=== PATIENT | male | born 1985 | race African-American/Black ===

== ENCOUNTER 2025-02-26 14:09 | Outpatient (AMB) | payer OTHER, SELFPAY ==
--- NOTE | 2025-02-26 14:11 | MHC.PC.OV ---
Vital Signs 02/26/25 14:14 Height 5 ft 11 in Weight 335 lb 4 oz BMI 46.8 BP 132/70 Blood Pressure Location Lt brachial Position Sitting Respiration 16 Pulse 93 Pulse Source Pulse Oximeter Temp 97.1 F Temp Source Temporal Artery Scan Pulse Oximetry (%) 97 Oxygen Delivery Method Room Air Intake Visit Reasons: New Patient, reestablish care and physical Site Coordinator Required: No Accompanied by: Self / Same As Patient Allergies No Known Allergies Allergy (Verified 02/26/25 14:15) Medication List - Last Reconciled 02/26/25 by Renita Graham MD No Known Home Meds Tobacco use date assessed: 02/26/25 Dental Screening Dental Screen Date: 02/26/25 Did you have a dental visit in the last 12 months?: Yes Did you have a dental problem in the last 6 months where you did not have access to dental care?: No Was dental information given to patient?: Patient has dentist HPI HPI Comments History of Present Illness Details The patient is a 39 year old male presenting for an annual physical examination. Attention-Deficit Hyperactivity Disorder: The patient reports variable focus and attention, describing it as either really bad or really good. At work, the patient uses a filing system to stay organized, but feels a greater need for focus and task adherence at home. The symptoms do not currently interfere with work functionality. The patient is not currently interested in pharmacotherapy but is open to a future psychiatry consultation if symptoms worsen at home. Melanonychia: The patient noted a dark line on the left fingernail that has been present for a couple of months. The patient does not recall any trauma to the nail. Urinary Hesitancy: The patient has a past history of experiencing urinary hesitancy and a sensation of incomplete bladder emptying. These symptoms have not occurred recently. Cervical Lymphadenopathy and Thyroid Fullness: On current examination, there is a small lymph node in the right cervical area and fullness in the thyroid region. 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 - Family Status: The patient has a baby. - Mental Health Screening: ARA-7 score was 0, and PHQ-9 score was 1. Diagnostic Results: - Screening Tests: ARA-7 (anxiety) score of 0; PHQ-9 (depression) score of 1. [facility] Medical History (Updated 02/26/25 @ 14:39 by Renita Graham MD) Thyromegaly Routine medical exam ADHD Surgical History (Updated 02/26/25 @ 12:58 by Renita Graham MD) History of hernia surgery Family History (Updated 02/26/25 @ 12:57 by Renita Graham MD) Father Prostate cancer Other Diabetes mellitus Primary hypertension Social History Housing: Apartment Patient Tobacco Use Status: Current everyday Tobacco user Tobacco use type: Cigarette Cigarettes Per Day: 3 Years Smoked: on and off for 20 years e-Cigarette/Vaping Use: Former Use service: No Current occupational status: employed Current occupation: human services Questionnaire PHQ-9 Over the last 2 weeks, how often have you been bothered by any of the following problems? 1. Little interest or pleasure in doing things: not at all 2. Feeling down, depressed, or hopeless: not at all 3. Trouble falling or staying asleep, or sleeping too much: not at all 4. Feeling tired or having little energy: several days 5. Poor appetite or overeating: not at all 6. Feeling bad about yourself - or that you are a failure or have let yourself or your family down: not at all 7. Trouble concentrating on things, such as reading the newspaper or watching television: not at all 8. Moving or speaking so slowly that other people could have noticed. Or the opposite - being so fidgety or restless that you have been moving around a lot more than usual: not at all 9. Thoughts that you would be better off or of hurting yourself in some way: not at all Total score: 1 Depression Screening Interpretation: Negative Depression Screening Done: Yes 70890 - PHQ-9 Billing: Yes Source: Developed by Drs. Ridge Brown, Caren Avery, Stevie Abraham and colleagues, with an educational sujey from [employer]. Thrive Questionnaire Date Thrive assessed: 02/26/25 I am a: Patient What is your living situation today?: I have a steady place to live Within the past 12 months, did the food you bought not last and you didn't have the money to get more?: Never true Within the past 12 months, did you worry whether your food would run out before you got money to buy more?: Never true Do you have trouble paying for medicines?: No Do you have trouble getting transportation to medical appointments?: No Do you have trouble paying your heating and electricity bill?: No Do you have trouble taking care of your child, family member or friend?: No Do you have trouble with day-to-day activities such as bathing, preparing meals, shopping, managing finances, etc.?: No Are you currently unemployed and looking for a job?: No Are you interested in more education?: Yes Please select the resources that you would like help with: None Currently or been in a relationship where the following occur: No concerns reported THRIVE Score: 0 AUDIT C Alcohol Use Questionnaire (AUDIT-C) 1. How often do you have a drink containing alcohol?: Monthly or less 2. How many drinks containing alcohol do you have on a typical day when you are drinking?: 3 or 4 3. How often do you have six or more drinks on one occasion?: Never Total Score: 2 ARA-7 AMB Questionnaire ARA-7 Date ARA - 7 assessed: 02/26/25 Feeling nervous, anxious, or on edge: 0 = Not at all Not being able to stop or control worryin = Not at all Worrying too much about different things: 0 = Not at all Trouble relaxin = Not at all Being so restless that it is hard to sit still: 0 = Not at all Becoming easily annoyed or irritable: 0 = Not at all Feeling afraid as if something awful might happen: 0 = Not at all Total ARA-7 score (0-4 normal; 5-9 mild; 10-14 moderate; 15-21 severe): 0 Source: Developed by Drs. Ridge Brown, Caren Avery, Stevie Abraham and colleagues, with an educational sujey from [employer]. Review of Systems Narrative Review of Systems - Psychiatric: Denies symptoms of anxiety or depression based on screening scores. Reports variable focus and attention, which is more pronounced at home but does not affect work performance. - Dermatologic: Reports a dark line on the left thumb fingernail for a couple of months. Denies trauma. - Genitourinary: per hpi Physical exam (Primary Care) Vital Signs: Last Vital Signs Temp 97.1 F 02/26/25 14:14 Pulse 93 02/26/25 14:14 Resp 16 02/26/25 14:14 BP 132/70 02/26/25 14:14 Pulse Ox 97 02/26/25 14:14 Oxygen Delivery Method Room Air 02/26/25 14:14 BMI result Body Mass Index 46.8 Tobacco/Smoking Status: Tobacco use Status Tobacco use date assessed 02/26/25 02/26/25 14:18 Patient Tobacco Use Status Current everyday Tobacco 02/26/25 14:18 Tobacco use type Cigarette 02/26/25 14:18 e-Cigarette/Vaping Use Former Use 02/26/25 14:18 PHQ-9: PHQ-9 Score PHQ-9: Total score 1 02/26/25 16:06 Depression Screening Interpretation: Negative Thrive Assessment: Date of Thrive Assessment Date Thrive assessed 02/26/25 02/26/25 14:18 Currently or been in a relationship where the following occur: No concerns reported Narrative Physical Exam - Gen: NAD - HEENT: External ear canals are clear bilaterally. Oropharynx is clear. Neck exam reveals fullness in the thyroid region, +thyromegaly and a small, non-tender lymph node in the right cervical area. - Cardiovascular: Regular rhythm. Normal S1 and S2. Soft murmur was auscultated. Carotids are clear to auscultation. - Pulmonary: Lungs are clear to auscultation bilaterally. - Abdomen: Soft, non-tender, and non-distended with normal bowel sounds. - Extremities: No edema in bilateral lower extremities. Coding Level of Care Code Est Pt Prev Care [id number](53274) Complex visit Add On G2211 Diagnoses Thyromegaly E01.0 Additional Codes PHQ-9 - 92982 - PHQ-9 Billing: Yes ([id number]) Assessment & Plan Assessment & Plan (1) Thyromegaly: Code(s): E01.0 - Iodine-deficiency related diffuse (endemic) goiter Category: Medical Plan Assessment and Plan 1. Annual Physical Examination The patient is a 39-year-old individual presenting for a routine check-up. Plan includes ordering fasting labs (CBC, lipid panel, CMP) to screen for anemia, cholesterol levels, and kidney and liver function. 2. Attention-Deficit Hyperactivity Disorder The patient manages symptoms with organizational strategies and does not wish to start medication at this time. Symptoms are more pronounced at home but do not impact work function. Plan is to continue with current strategies and offer a psychiatry referral if the patient's symptoms worsen or the patient requests it. 3. Melanonychia The patient has a dark line on the left fingernail for two months with no history of trauma. The ordered lab work will help assess for underlying causes like anemia or vitamin deficiencies. If persistent consider dermatology referral. 4. Thyroid Fullness and Right Cervical Lymphadenopathy Exam revealed fullness in the thyroid area and a small right cervical lymph node. An ultrasound of the neck will be ordered to evaluate the thyroid gland and the adjacent lymph node. 5. History of Urinary Hesitancy The patient's past urinary symptoms have resolved. The patient was advised to monitor for recurrence, with a plan for a urology referral if symptoms return and become problematic. Plan - Will order fasting labs including a blood count, cholesterol profile, and kidney and liver labs. - Will order a neck ultrasound to evaluate thyroid fullness and a right cervical lymph node; the scheduling team will contact the patient. - Continue monitoring ADHD symptoms and defer pharmacologic treatment; will provide a psychiatry referral if requested in the future. - Monitor for recurrence of urinary symptoms; will consider a urology referral if they return. - The patient to follow up for the next annual physical in one year or sooner if needed. Discussion Notes Regarding the neck fullness and small lymph node, I explained that an ultrasound is needed for further evaluation. We discussed the patient's ADHD symptoms, and the patient agreed to continue with behavioral management for now, with the understanding that a psychiatry consultation is an option if things change. Patient Instructions - Please go for your fasting blood tests - Our scheduling team will call you to set up an appointment for a neck ultrasound. - Continue managing your focus and attention with your current methods. Please let me know if you feel it is getting worse or if you would like to speak with a specialist. - Watch for any returning trouble with urination. If it comes back, please let me know. Orders: Orders Comprehensive Met. Panel Today Z00.00 - Encounter for general adult medical examination without abnormal findings Lipid Panel Today Z00.00 - Encounter for general adult medical examination without abnormal findings Complete Blood Count Auto Diff Today Z00.00 - Encounter for general adult medical examination without abnormal findings US soft tiss head and/or neck Today E01.0 - Iodine-deficiency related diffuse (endemic) goiter, R59.0 - Localized enlarged lymph nodes TSH reflex Free T4 Today E01.0 - Iodine-deficiency related diffuse (endemic) goiter
[2025-02-26 14:14] VITALS: BP 132/70; PULSE 93; RESP 16; TEMP 36.2; O2SAT 97; BMI 46.8
== END 2025-02-26 14:44 | disposition home or self-care (01) ==
LOC: HO.HMCHD 14:10
PROVIDERS: PCP Internal Medicine; Visit Provider Internal Medicine
DX: Z00.00 Encounter for general adult medical examination without abnormal findings (principal); E01.0 Iodine-deficiency related diffuse (endemic) goiter

== ENCOUNTER → 2025-02-26 14:09 | Outpatient (BNVA) | payer OTHER, SELFPAY | PROVIDERS: PCP Internal Medicine; Visit Provider Internal Medicine | DX: Z13.31 Encounter for screening for depression (principal); Z13.39 Encounter for screening examination for other mental health and behavioral disorders | CPT/HCPCS: 96127 ==